=== PATIENT | female | born 2000 | race Caucasian/White ===

== ENCOUNTER 2020-12-04 21:27 | Emergency (ER) | payer SELFPAY ==
[~2020-12-04] VITALS: Ht 167.6 cm; Wt 59.0 kg
[2020-12-04 21:55] VITALS: BP 118/87
[2020-12-04] MEDS ORDERED: TDAP [DIPH/PERTUSSIS/TET] 0.5 ML VIAL IM ONE (22:15)
[2020-12-04] MEDS ORDERED: LIDOCAINE /MPF 1% VIAL 5 ML VIAL ONE (22:17)
[2020-12-04] MEDS: TDAP [DIPH/PERTUSSIS/TET] 0.5 ML VIAL IM ONE (22:26)
--- NOTE | 2020-12-04 22:26 | NUR ---
STEVE BARKLEY AT BED SIDE FOR [facility]
== END 2020-12-04 22:53 | disposition home or self-care (01) ==
LOC: ER 21:27
DX: S01.111A Laceration without foreign body of right eyelid and periocular area, initial encounter (principal); W22.8XXA Striking against or struck by other objects, initial encounter; Y93.89 Activity, other specified; Y92.89 Other specified places as the place of occurrence of the external cause; Y99.8 Other external cause status
CPT/HCPCS: 12011; 99282; J3490; 90715